=== PATIENT | female | born 1995 | race Caucasian/White ===

== ENCOUNTER 2018-12-05 11:41 | Inpatient (IN) | payer MEDICAID ==
[2018-12-05 12:34] LABS: RUPTURE FETAL MEMBRANES NEGATIVE (NEGATIVE)
[2018-12-05] MEDS ORDERED: OXYTOCIN 30 UNITS/LR 500 ML IV ×2 (15:00)
[2018-12-05] MEDS ORDERED: LIDOCAINE 1% (MPF) 30 ML INJ INJ (15:00)
[2018-12-05] MEDS ORDERED: BUTORPHANOL 2 MG INJ IV (15:00)
[2018-12-05] MEDS ORDERED: CARBOPROST 250 MCG INJ IM (15:00)
[2018-12-05] MEDS ORDERED: METHYLERGONOVINE 0.2 MG INJ IM (15:00)
[2018-12-05] MEDS ORDERED: MISOPROSTOL 200 MCG TAB PR (15:00)
[2018-12-05 16:48] LABS: ADD MAN DIFF? NO
[2018-12-05 16:50] LABS: WHITE BLOOD COUNT 9.1 10^3/ul (4.8-10.8)
[2018-12-05 16:50] LABS: BASOPHILS % 0.1 % (0.0-2.0); EOSINOPHILS % 0.2 % (0.0-7.0); HEMATOCRIT 33.1 % (37.0-47.0); HEMOGLOBIN 10.5 g/dl (12.0-16.0); LYMPHOCYTES # 1.1 10^3/ul (0.8-2.9); LYMPHOCYTES % 12.4 % (15.0-51.0); MEAN CORPUSCULAR HEMOGLOBIN 26.1 pg (29.0-33.0); MEAN CORPUSCULAR HGB CONC 31.7 g/dl (32.0-37.0); MEAN CORPUSCULAR VOLUME 82.1 fl (82.0-101.0); MEAN PLATELET VOLUME 10.9 fl (7.4-10.4); MONOCYTE # 0.4 10^3/ul (0.3-0.9); MONOCYTES % 4.6 % (0.0-11.0); NEUTROPHIL # 7.4 10^3/ul (1.6-7.5); NEUTROPHILS % 81.7 % (39.0-77.0); PLATELET COUNT 286 10^3/UL (140-415); RED BLOOD COUNT 4.03 10^6/ul (4.20-5.40); RED CELL DISTRIBUTION WIDTH 15.3 % (11.5-14.5)
[2018-12-05 17:09] LABS: INR 0.89; PROTIME 12.2 Sec (11.9-14.9)
[2018-12-05 17:10] LABS: PARTIAL THROMBOPLASTIN TIME 28.3 Sec (23.0-35.0)
[2018-12-05 17:39] LABS: HEPATITIS B SURFACE ANTIGEN NEGATIVE (NEGATIVE)
[2018-12-05] MEDS ORDERED: KETOROLAC 30 MG INJ IV (18:09)
[2018-12-05] MEDS ORDERED: ACETAMINOPHEN 500 MG TAB PO (18:09)
[2018-12-05] MEDS: LACTATED RINGER'S 1,000 ML IV (19:49)
[2018-12-05] MEDS: MISOPROSTOL 50 MCG CAPSULE PO (20:45)
[2018-12-06] MEDS: MISOPROSTOL 50 MCG CAPSULE PO ×7 (01:59→21:00)
[2018-12-06] MEDS: LACTATED RINGER'S 1,000 ML IV ×4 (06:07→19:48)
[2018-12-06] MEDS ORDERED: FENTAnyl 2MCG/ML-ROPIV 0.2% 100 ML (12:12)
[2018-12-06] MEDS ORDERED: FENTAnyl 50 MCG/ML VIAL (12:12)
[2018-12-06] MEDS ORDERED: NALOXONE (0.4 MG/ML) INJ IV (12:30)
[2018-12-06 16:09] LABS: RAPID PLASMA REAGIN NONREACTIVE (NR)
[2018-12-06] MEDS: FENTAnyl 2MCG/ML-ROPIV 0.2% 100 ML BAG EPI ×2 (16:31→20:05)
[2018-12-06] MEDS: AZITHROMYCIN 500MG/NS (PMX) 250 ML IVPB (16:34)
[2018-12-07] MEDS: MISOPROSTOL 50 MCG CAPSULE PO (01:00)
[2018-12-07] MEDS: FENTAnyl 2MCG/ML-ROPIV 0.2% 100 ML BAG EPI ×2 (02:02→07:59)
[2018-12-07] MEDS: LACTATED RINGER'S 1,000 ML IV ×4 (02:44→18:33)
[2018-12-07] MEDS: MINERAL OIL LIGHT 10 ML VIAL TOP (05:00)
[2018-12-07] MEDS: TERBUTALINE 1 MG/ML INJ SC (10:30)
[2018-12-07] MEDS ORDERED: CEFAZOLIN 2 GM/50 ML (PMX) 50 ML IVPB (11:00)
[2018-12-07] MEDS ORDERED: AZITHROMYCIN 500MG/NS (PMX) 250 ML IV (11:00)
[2018-12-07] MEDS ORDERED: morphine SULFATE/PF (10 MG/10 ML) INJ (11:11)
[2018-12-07] MEDS ORDERED: OXYTOCIN 10 UNIT INJ ×2 (11:34)
[2018-12-07] MEDS ORDERED: MIDAZOLAM 1 MG/ML 2 ML INJ ×5 (11:41→12:14)
[2018-12-07] MEDS ORDERED: ONDANSETRON 4 MG INJ (11:44)
[2018-12-07] MEDS ORDERED: ONDANSETRON 4 MG INJ IV (12:00)
[2018-12-07] MEDS ORDERED: LORAZEPAM 2 MG INJ IV (12:00)
[2018-12-07] MEDS ORDERED: MIDAZOLAM 1 MG/ML 2 ML INJ IV (12:00)
[2018-12-07] MEDS ORDERED: HYDROmorphONE 0.5 MG/0.5 ML SYG IV (12:00)
[2018-12-07] MEDS ORDERED: DIPHENHYDRAMINE 50 MG INJ IV ×2 (12:00)
[2018-12-07] MEDS ORDERED: MEPERIDINE 25 MG INJ IV (12:00)
[2018-12-07] MEDS ORDERED: KETOROLAC 30 MG INJ IV (12:00)
[2018-12-07] MEDS ORDERED: ZOLPIDEM 5 MG TAB PO (12:00)
[2018-12-07] MEDS ORDERED: NALOXONE (0.4 MG/ML) INJ IV (12:00)
[2018-12-07] MEDS ORDERED: NALBUPHINE HCL (10 MG/1 ML) INJ IV (12:00)
[2018-12-07] MEDS ORDERED: DIPHENHYDRAMINE 50 MG INJ ×2 (12:02→12:03)
[2018-12-07 12:05] LABS: CBV COHb 0.3 %; MODE ROOM AIR; Sample Type CBV; Site CORD
[2018-12-07] MEDS ORDERED: KETOROLAC 30 MG INJ (12:19)
[2018-12-07] MEDS ORDERED: FENTAnyl 50 MCG/ML VIAL (12:27)
[2018-12-07 12:30] LABS: CBV Base Excess -6.6 mmol/L; CBV Oxygen Sat 20.4 mmHG; CBV Total Hemglobin 15.7 g/dl; Cord Blood Venous AADO2 50.7 mmHg; Cord Blood Venous pO2 14.1 mmHG (15.0-45.0); Fraction OxyHgb Cord Venous 19.9 %; MetHgb Cord Venous 2.1 %
[2018-12-07 12:31] LABS: Arterial Cord Blood pCO2 66.5 mmHG (25-50); CBA Base Excess -9.4 mmol/L; CBA COHb 0.3 %; CBA Total Hemglobin 15.4 g/dl; Fraction OxyHgb Cord Arterial 6.9 %; MODE ROOM AIR; MetHgb Cord Arterial 2.3 %; Sample Type CBA; Site CORD
[2018-12-07] MEDS: OXYTOCIN 30 UNITS/LR 500 ML IV ×2 (13:17→17:27)
[2018-12-07 16:56] LABS: ADD MAN DIFF? NO
[2018-12-07 16:58] LABS: BASOPHILS % 0.1 % (0.0-2.0); HEMATOCRIT 30.9 % (37.0-47.0); HEMOGLOBIN 9.9 g/dl (12.0-16.0); LYMPHOCYTES # 0.8 10^3/ul (0.8-2.9); LYMPHOCYTES % 5.1 % (15.0-51.0); MEAN CORPUSCULAR HEMOGLOBIN 26.2 pg (29.0-33.0); MEAN CORPUSCULAR VOLUME 81.7 fl (82.0-101.0); MEAN PLATELET VOLUME 10.6 fl (7.4-10.4); MONOCYTE # 0.7 10^3/ul (0.3-0.9); MONOCYTES % 4.1 % (0.0-11.0); NEUTROPHIL # 14.3 10^3/ul (1.6-7.5); NEUTROPHILS % 90.1 % (39.0-77.0); PLATELET COUNT 251 10^3/UL (140-415); RED BLOOD COUNT 3.78 10^6/ul (4.20-5.40); RED CELL DISTRIBUTION WIDTH 15.2 % (11.5-14.5)
[2018-12-07 16:58] LABS: WHITE BLOOD COUNT 15.8 10^3/ul (4.8-10.8)
[2018-12-07 17:20] LABS: ALANINE AMINOTRANSFERASE 23 IU/L (13-69); ALBUMIN 2.9 g/dl (3.3-4.9); ALKALINE PHOSPHATASE 161 IU/L (42-121); ANION GAP 7 (5-13); ASPARTATE AMINO TRANSFERASE 28 IU/L (15-46); BILIRUBIN,INDIRECT 0.4 mg/dl (0-1.1); BILIRUBIN,TOTAL 0.4 mg/dl (0.2-1.3); BLOOD UREA NITROGEN 12 mg/dl (7-20); CALCIUM 8.6 mg/dl (8.4-10.2); CARBON DIOXIDE 20 mmol/L (21-31); CHLORIDE 111 mmol/L (97-110); CREATININE 0.84 mg/dl (0.44-1.00); Estimated GFR > 60 mL/min (>60); GLUCOSE 76 mg/dl (70-220); POTASSIUM 4.2 mmol/L (3.5-5.1); SODIUM 138 mmol/L (135-144); TOTAL PROTEIN 6.5 g/dl (6.1-8.1); URIC ACID 6.1 mg/dl (3.1-7.9)
[2018-12-07 17:21] LABS: INR 0.94; PROTIME 12.7 Sec (11.9-14.9)
[2018-12-07 17:52] LABS: ADD UMIC YES; UR ASCORBIC ACID NEGATIVE (NEGATIVE); UR BACTERIA FEW /HPF (NONE SEEN); UR BILIRUBIN (Dip) NEGATIVE (NEGATIVE); UR BLOOD (Dip) 3+ mg/dL (NEGATIVE); UR CLARITY CLEAR (CLEAR); UR COLOR YELLOW (YELLOW); UR GLUCOSE (Dip) NEGATIVE (NEGATIVE); UR KETONES (Dip) NEGATIVE (NEGATIVE); UR LEUKOCYTE ESTERASE (Dip) 1+ Leu/ul (NEGATIVE); UR MUCUS FEW /HPF (NONE SEEN); UR NITRITE (Dip) NEGATIVE (NEGATIVE); UR RBC 110 /HPF (0-5); UR SPECIFIC GRAVITY (Dip) 1.012 (1.003-1.030); UR TOTAL PROTEIN (Dip) 1+ mg/dl (NEGATIVE); UR UROBILINOGEN (Dip) NEGATIVE (NEGATIVE); UR WBC 19 /HPF (0-5)
[2018-12-07] MEDS ORDERED: CARBOPROST 250 MCG INJ IM (19:00)
[2018-12-07] MEDS ORDERED: NA PHOSPHATE/BIPHOS 133 ML ENEMA PR (19:00)
[2018-12-07] MEDS ORDERED: MISOPROSTOL 200 MCG TAB PR (19:00)
[2018-12-07] MEDS ORDERED: METHYLERGONOVINE 0.2 MG INJ IM (19:00)
[2018-12-07] MEDS ORDERED: OXYCODONE/ACETAMINOPHEN (5/325) TAB PO (19:00)
[2018-12-07] MEDS ORDERED: OXYTOCIN 30 UNITS/LR 500 ML IV (19:00)
[2018-12-07] MEDS: CEFAZOLIN 2 GM/50 ML (PMX) 50 ML IVPB (19:51)
[2018-12-07] MEDS: SENNA/DOCUSATE NA (8.6MG/50MG) TAB PO (21:00)
[2018-12-07] MEDS: CLINDAMYCIN 300 MG CAP PO (23:12)
[2018-12-07] MEDS: HYDROmorphONE 0.5 MG/0.5 ML SYG IV (23:13)
[2018-12-08] MEDS: CEFAZOLIN 2 GM/50 ML (PMX) 50 ML IVPB ×2 (03:32→10:52)
[2018-12-08] MEDS: IBUPROFEN 800 MG TAB PO ×3 (05:32→21:37)
[2018-12-08] MEDS: CLINDAMYCIN 300 MG CAP PO ×3 (05:32→17:52)
[2018-12-08 06:44] LABS: ADD MAN DIFF? NO
[2018-12-08 06:49] LABS: BASOPHILS % 0.1 % (0.0-2.0); EOSINOPHILS % 0.1 % (0.0-7.0); HEMATOCRIT 26.7 % (37.0-47.0); HEMOGLOBIN 8.6 g/dl (12.0-16.0); LYMPHOCYTES # 1.4 10^3/ul (0.8-2.9); LYMPHOCYTES % 9.8 % (15.0-51.0); MEAN CORPUSCULAR HEMOGLOBIN 26.2 pg (29.0-33.0); MEAN CORPUSCULAR HGB CONC 32.2 g/dl (32.0-37.0); MEAN CORPUSCULAR VOLUME 81.4 fl (82.0-101.0); MEAN PLATELET VOLUME 10.9 fl (7.4-10.4); MONOCYTE # 0.7 10^3/ul (0.3-0.9); MONOCYTES % 4.7 % (0.0-11.0); NEUTROPHIL # 12.1 10^3/ul (1.6-7.5); NEUTROPHILS % 84.5 % (39.0-77.0); PLATELET COUNT 235 10^3/UL (140-415); RED BLOOD COUNT 3.28 10^6/ul (4.20-5.40); RED CELL DISTRIBUTION WIDTH 15.5 % (11.5-14.5)
[2018-12-08 06:49] LABS: WHITE BLOOD COUNT 14.4 10^3/ul (4.8-10.8)
[2018-12-08] MEDS: KETOROLAC 30 MG INJ IV (07:00)
[2018-12-08] MEDS: ACETAMINOPHEN 500 MG TAB PO (07:00)
[2018-12-08] MEDS: SENNA/DOCUSATE NA (8.6MG/50MG) TAB PO ×2 (10:52→21:05)
[2018-12-08] MEDS: HYDROCODONE/APAP (5/325) TAB PO (10:53)
[2018-12-08] MEDS: BISACODYL 10 MG SUPP PR (12:00)
[2018-12-09] MEDS: CLINDAMYCIN 300 MG CAP PO ×4 (00:01→17:59)
[2018-12-09] MEDS: IBUPROFEN 800 MG TAB PO ×3 (06:02→22:22)
[2018-12-09 09:44] LABS: ADD MAN DIFF? NO
[2018-12-09 09:53] LABS: BASOPHILS % 0.1 % (0.0-2.0); EOSINOPHILS # 0.1 10^3/ul (0.0-0.5); HEMATOCRIT 26.7 % (37.0-47.0); HEMOGLOBIN 8.4 g/dl (12.0-16.0); LYMPHOCYTES # 1.2 10^3/ul (0.8-2.9); LYMPHOCYTES % 11.9 % (15.0-51.0); MEAN CORPUSCULAR HEMOGLOBIN 25.6 pg (29.0-33.0); MEAN CORPUSCULAR HGB CONC 31.5 g/dl (32.0-37.0); MEAN CORPUSCULAR VOLUME 81.4 fl (82.0-101.0); MEAN PLATELET VOLUME 10.9 fl (7.4-10.4); MONOCYTE # 0.5 10^3/ul (0.3-0.9); MONOCYTES % 4.8 % (0.0-11.0); NEUTROPHIL # 8.4 10^3/ul (1.6-7.5); NEUTROPHILS % 80.8 % (39.0-77.0); PLATELET COUNT 267 10^3/UL (140-415); RED BLOOD COUNT 3.28 10^6/ul (4.20-5.40); RED CELL DISTRIBUTION WIDTH 15.8 % (11.5-14.5)
[2018-12-09 09:53] LABS: WHITE BLOOD COUNT 10.4 10^3/ul (4.8-10.8)
[2018-12-09] MEDS: SENNA/DOCUSATE NA (8.6MG/50MG) TAB PO ×2 (12:03→21:12)
[2018-12-09] MEDS: LANOLIN HPA 1 PKT TOP ×2 (14:01→22:56)
[2018-12-09] MEDS ORDERED: ACETAMINOPHEN 325 MG TAB PO (19:30)
[2018-12-10] MEDS: CLINDAMYCIN 300 MG CAP PO ×3 (00:18→11:51)
[2018-12-10] MEDS: IBUPROFEN 800 MG TAB PO ×2 (05:59→13:45)
[2018-12-10] MEDS: DIPHTH/TET/ACEL PERTUSS (ADULT) 0.5 ML VIAL IM* (07:35)
[2018-12-10] MEDS: SENNA/DOCUSATE NA (8.6MG/50MG) TAB PO (08:33)
[2018-12-10] MEDS: LANOLIN HPA 1 PKT TOP (08:33)
[2018-12-10 08:35] LABS: ADD MAN DIFF? NO
[2018-12-10 08:44] LABS: WHITE BLOOD COUNT 7.3 10^3/ul (4.8-10.8)
[2018-12-10 08:44] LABS: BASOPHILS % 0.3 % (0.0-2.0); EOSINOPHILS # 0.2 10^3/ul (0.0-0.5); EOSINOPHILS % 2.2 % (0.0-7.0); HEMATOCRIT 25.5 % (37.0-47.0); HEMOGLOBIN 7.9 g/dl (12.0-16.0); LYMPHOCYTES # 1.3 10^3/ul (0.8-2.9); LYMPHOCYTES % 18.4 % (15.0-51.0); MEAN CORPUSCULAR HEMOGLOBIN 25.5 pg (29.0-33.0); MEAN CORPUSCULAR VOLUME 82.3 fl (82.0-101.0); MEAN PLATELET VOLUME 10.5 fl (7.4-10.4); MONOCYTE # 0.4 10^3/ul (0.3-0.9); MONOCYTES % 5.6 % (0.0-11.0); NEUTROPHIL # 5.2 10^3/ul (1.6-7.5); PLATELET COUNT 270 10^3/UL (140-415); RED CELL DISTRIBUTION WIDTH 15.9 % (11.5-14.5)
[2018-12-10] MEDS: MEASLES,MUMPS,RUBELLA VACCINE INJ SC* (13:48)
== END 2018-12-10 14:18 | disposition home or self-care (01) | DRG 788 ==
LOC: OBT 11:41 → L-D 12-06 06:11 → PP1 12-07 17:53 → OBT 14:30 → L-D 14:38
PROVIDERS: Obstetrics & Gynecology
PROC: 10D00Z1 Extraction of Products of Conception, Low, Open Approach (ICD-10-PCS; principal; 2018-12-07 11:30)
PROC: 0UB10ZZ Excision of Left Ovary, Open Approach (ICD-10-PCS; 2018-12-07 11:30)
DX: O65.5 Obstructed labor due to abnormality of maternal pelvic organs (principal); O34.83 Maternal care for other abnormalities of pelvic organs, third trimester; O76 Abnormality in fetal heart rate and rhythm complicating labor and delivery; O62.1 Secondary uterine inertia; O77.1 Fetal stress in labor or delivery due to drug administration; N83.202 Unspecified ovarian cyst, left side; O69.2XX0 Labor and delivery complicated by other cord entanglement, with compression, not applicable or unspecified; Z37.0 Single live birth; Z3A.38 38 weeks gestation of pregnancy
CPT/HCPCS: 36415; 36600; 62322; 76815; 76818; 80053; 81001; 82803; 84112; 84560; 85025; 85384; 85610; 85730; 86592; 86850; 86900; 86901; 87340; 88305; 99464